=== PATIENT | male | born 1970 | race Caucasian/White ===

== ENCOUNTER 2021-01-31 23:21 | Emergency (ER) | payer OTHER, SELFPAY ==
[2021-01-31 23:25] VITALS: BP 167/85; PULSE 75; RESP 21; TEMP 36.8; O2SAT 96
--- NOTE | 2021-01-31 23:34 | W.ED.GENAD ---
Discharge Plan Disposition Patient Disposition: HOME Condition: Stable Discharge Details Clinical Impression: Back pain Primary Care Provider: Mikik Arita ED Provider: Whitney Mai Home Meds and New Rx's Prescriptions: New prednisone 20 mg tablet 40 mg PO DAILY 4 Days Qty: 8 RF: 0 Continued tizanidine 4 mg Tablet 4 mg PO TID PRNRF: 0 Discharge Instructions Instructions: Oxycodone, Rapid Release (By mouth), Back Pain (ED) Additional Instructions: Imaging and exam are reassuring today. To help manage your pain, please continue with Tylenol and/or ibuprofen. Please take as directed on the bottle. Please use lidocaine patches, these are available [id number]. Continue with the steroids to help with inflammatory source that may be causing your discomfort. Dose was given tonight, next dose will be due in another 24 hours. You may continue with tizanidine as prescribed by your primary care. Aggressive prescribed short course of oxycodone. Please not drive will take this medication and keep in a safe place. Please encourage gentle range of motion and ambulation. Please avoid any heavy lifting. Please encourage water intake. Heat or ice to affected area. Please keep upcoming appointment with primary care. Referral for physical therapy is attached. If you develop weakness, change in bowel or bladder habits, uncontrolled pain or other new/worsening symptoms please seek care urgently once again. Stand Alone Forms: Physical Therapy Referral Referrals: Mikki Arita [Primary Care Provider] - Discharge Data Discharge Date/Time-TO BE ENTERED AT DEPARTURE: 02/01/21 01:49 Medical Decision Making Patient is a pleasant 50-year-old male presenting today with chief complaint of lumbar back pain radiating into left buttock and groin. He reports the pain began approximately 1 week ago after trying to lift a treadmill. States the pain initially was fairly mild but is progressively worsened since then. Was seen by primary care today which time he started on tizanidine. He states he used tizanidine and NSAIDs prior to sleep tonight. However, had minimal rest and awoke with exquisite discomfort. He denies any fevers or chills. Has not Had any falls. No other evidence of trauma. Denies any numbness or tingling. States the pain radiates into the left buttock and now around to the aspect of the groin. On exam, patient appears uncomfortable. He is preferring to stay in a standing position as sitting greatly increases the discomfort. He does have some pain along the midline of the lumbar spine b but no focal pain. He has good rotational movement with slightly discomfort elicited at the extremes of rotation to the left. Good extension but forward flexion greatly exacerbates his pain. He has good range of motion of the left hip with pain only elicited with abduction against resistance. No saddle paresthesias. No rash. No pain with palpation in the groin or under the buttock. At this time, I do not see any evidence to suggest cauda equina. Given the mechanism and progression of pain, primarily concerned for muscular discomfort. Plan for p.o. Valium and Tylenol. I am concerned with the severity of discomfort and do feel that imaging would be warranted at this time. Reevaluated the patient. He reports some numbness down the left anterior calf. His two-point discrimination remains intact. However, his patellar reflexes are greatly diminished on the left side compared to the right. He is able to dorsiflex against resistance without difficulty or weakness. Patient reports that patient reports the pain is down from a 10 out of 10 to 7 out of 10. However, would like further pain medication. We will augment with oxycodone. FINDINGS: Bones/joints: Normal. No acute fracture or dislocation. Soft tissues: Normal. IMPRESSION: Unremarkable CT. FINDINGS: Vertebrae: L1/2, slight loss of disc space height with subtle endplate irregularities and anterior spurring. No significant spinal or foraminal stenosis. L2/3, slight loss of disc space height with superior endplate L3 Schmorl's node and discogenic endplate sclerosis. Small broad-based disc osteophyte complex without significant spinal stenosis or foraminal stenosis L1-L2: No significant disc protrusion. No severe spinal canal stenosis. No significant neural foraminal narrowing. L2-L3: No significant disc protrusion. No severe spinal canal stenosis. No significant neural foraminal narrowing. L3-L4: L3/4, degenerative disc disease with a small diffuse disc osteophyte complex. Mild spinal stenosis results. Moderate right-sided and left-sided foraminal stenosis contributed to by prominent facet joints. L4-L5: L4/5 and demonstrates minimal disc disease without spinal stenosis. Moderate right and moderate to severe left-sided foraminal stenosis contributed to by slightly prominent facet joints. L4/5 demonstrates minimal degenerative disc disease without spinal stenosis. Minimal bilateral foraminal stenosis contributed to by prominent facet joints L5-S1: See Vertebrae finding. Soft tissues: Unremarkable. IMPRESSION: Multilevel lumbar degenerative disc disease and foraminal stenosis as above Discussed these findings with the patient and his . He is feeling improved after the oxycodone and found this more helpful than the Valium. Post void residual was obtained and found to be 78 cc. Patient is ambulating well with no weakness. I do not see any evidence to suggest cauda equina. No evidence to suggest infectious pathology. Advised that the radiation of pain could be associated with sciatica. Also considered groin discomfort after antalgic gait associated with the initial injury over a week ago. We will begin him on steroids. Advised to continue with Tylenol and/or ibuprofen. Encourage water intake. Encourage gentle stretching. Advised he hold off on any lifting. His primary care is also taken him out of work for the week already. Will small course of oxycodone. Safe usage was discussed. I advised close follow-up with primary care, patient does have an appointment later this week. Strict return precautions were discussed. All his questions or concerns were addressed and he is in agreement with this plan. HPI General Mode of arrival: ambulatory. Date/Time Provider Initiated Documentation: 01/31/21 23:34. Limitations to Documentation: no limitations. Information obtained by: patient, family (accompanied by ) and RN notes reviewed. History of Present Illness 50 year old M presents to the emergency department with the chief complaint of left groin and lower back pain, described as severe, with intensity rated at 10. Quality is described as other (tearing), and is localized to the back, pelvis and left. Patient reports no radiation. Patient started experiencing this week(s) (1) and it has been constant. Immobilization improves symptom(s), Movement worsens symptoms . Patient notes no other symptoms.. Patient did receive the following treatments prior to arrival, NSAID and other (tizanidine) Related Data Home Medications Medication Instructions Recorded Confirmed tizanidine 4 mg PO TID PRN 01/31/21 01/31/21 prednisone 40 mg PO DAILY 4 Days #8 tab 02/01/21 Previous Rx's Medication Instructions Recorded prednisone 40 mg PO DAILY 4 Days #8 tab 02/01/21 General Stated Complaint: Orthopedic YESICA: 3 Review of Systems Constitutional Constitutional: Reports as per HPI, Denies chills, Denies fatigue, Denies fever(s), Denies frequent falls and Denies headache(s) ENT Ears, Nose, Mouth, and Throat: Denies headache(s) Cardiovascular Cardiovascular: Denies chest pain, Denies dyspnea and Denies dyspnea on exertion Respiratory Respiratory: Denies cough, Denies dyspnea and Denies dyspnea on exertion Gastrointestinal Gastrointestinal: Denies abdominal pain, Denies change in bowel habits and Denies fecal incontinence Genitourinary Genitourinary: Reports as per HPI, Denies urinary hesitancy and Denies urinary incontinence Musculoskeletal Musculoskeletal: Reports as per HPI, Reports back pain, Denies muscle weakness, Denies numbness, Reports radiating pain into limb and Denies tingling Integumentary/Breasts Skin/Breast: Reports as per HPI and Denies rash Neurologic Neurologic: Reports as per HPI, Denies frequent falls, Denies headache(s), Denies localized weakness, Denies numbness, Denies radicular pain, Denies sensory deficit, Denies tingling and Denies paresthesias Endocrine Endocrine: Denies fatigue [facility] Social History Smoking/Tobacco Use Status: Current every day Tobacco Type: e-cigarettes Smoking risk assessment performed?: Yes Drug use: Daily Substance use type: marijuana Details: vapes tobacco Do you feel safe at home: Yes Do you feel safe in your relationship?: Yes Exam Const General: cooperative, healthy appearing, uncomfortable, no acute distress, well developed and well groomed Nutritional Appearance: well nourished and overweight Orientation: alert and awake Resp Effort & Inspection: normal respiratory effort and able to speak in complete sentences Cardio Rate: regular rate Rhythm: regular rhythm Back/Spine/Pelvis Thoracic/Lumbar Spine: thoracic and lumbar spine normal to inspection, bend over test abnormal, No paraspinal tenderness, thoraco-lumbar ROM limited (with forward flexion), No thoracic spinal tenderness and lumbar spinal tenderness (mild tenderness with no focal point of pain) Pelvis: no pain with anterior-posterior compression, buttock tenderness on the left (indicates left buttock and gluteal fold as area of pain, none with palpation) and no buttock swelling Sacroiliac joints: bilaterally nontender Sacrum: no ecchymosis, no erythema and no swelling Coccyx: no tenderness Skin General skin exam: no rashes or lesions noted Neuro General: patient alert and patient awake Cognition: normal cognition Speech: speech normal Gait: antalgic Motor: muscle tone normal throughout, strength 5/5 throughout, no movement abnormalities noted and no fasciculations Sensory Exam: no sensory deficits noted (no saddle paresthesias) and normal double simultaneous stimulation DTR's: Rt Patellar: 2+ and Lt Patellar: 0 Extrem General: normal to inspection, full ROM, capillary refill normal, no joint enlargement, no pedal edema and no calf tenderness Left lower extremity: normal to inspection, full ROM, normal capillary refill, no joint enlargement, hip/thigh Details: normal to inspection, tenderness Location: of the hip Location: anteriorly (groin) and normal ROM; no swelling, no ecchymosis and no crepitus, knee Details: normal to inspection and lower leg Details: normal to inspection Psych Appearance: grossly normal and well kempt Mental Status: mental status grossly normal Speech and Movement: speech and movement normal Course Vital Signs Vital signs: Vital Signs Temperature 36.8 C 01/31/21 23:25 Pulse 75 01/31/21 23:25 Respiratory Rate 01/31/21 23:25 Blood Pressure 167/85 H 01/31/21 23:25 Pulse Oximetry 96 01/31/21 23:25 Temperature 36.8 C 01/31/21 23:25 Temperature Source Skin 01/31/21 23:25 Pulse 75 01/31/21 23:25 Respiratory Rate 21 01/31/21 23:25 Respiratory Effort Non-Labored 01/31/21 23:29 Blood Pressure 167/85 H 01/31/21 23:25 Pulse Oximetry 96 01/31/21 23:25 Oxygen Delivery Method Room Air 01/31/21 23:25 Oxygen Flow Rate 0 01/31/21 23:25 Pain Level 10 01/31/21 23:25
--- NOTE | 2021-01-31 23:45 | DI.CT_ITS ---
Exam(s) CT LUMBAR SPINE WO CT LOWER EXTREMITY LT WO EXAM: CT LUMBAR SPINE WO CLINICAL HISTORY: injury 1 week ago, LBP TECHNIQUE: COMPARISON: CT CT LOWER EXTREMITY LT WO from 02/01/2021 FINDINGS: CT examination of the lumbosacral spine and CT examination the left hemipelvis and hip are interprete d in conjunction. No soft tissue abnormality seen in the pelvis. Unremarkable appearance of the kid neys and aorta by noncontrast criteria. No adenopathy identified in the region obtained. There are mild degenerative changes lumbosacral spine with disc space loss of height and prominent Sc hmorl's nodes at L2-3. Moderate hypertrophic spurring noted at multiple sites. No evidence of acute fracture or dislocation. At L4-5, on the left, there is question asymmetric appearance of the intervertebral disc, left latera l disc herniation not excluded. Additional evaluation with MR may be obtained if clinically indicated . No left hemipelvis or left hip fracture or dislocation. IMPRESSION: No evidence of acute injury. Degenerative changes of the lumbosacral spine. Left-sided disc herniati on at L4-5 not excluded, MR correlation may be obtained if clinically indicated. RADIATION DOSE DELIVERED: Total DLP RADIATION OPTIMIZATION: All CT scans at this facility use at least one of these dose optimization te chniques: automated exposure control; mA and/or kV adjustment per patient size (includes targeted exa ms where dose is matched to clinical indication); or iterative reconstruction.
[2021-01-31] MEDS: diazePAM 5 MG TAB PO (23:58)
[2021-01-31] MEDS: Acetaminophen 325 MG TAB 650 MG PO (23:58)
[2021-02-01] MEDS: oxyCODONE 5 MG TAB PO (01:05)
--- NOTE | 2021-02-01 01:11 | DI.VRAD_ITS ---
PROCEDURE INFORMATION: Exam: CT Left Lower Extremity Without Contrast, Hip Exam date and time: 02/01/2021 12:23 AM Age: 50 years old Clinical indication: Patient HX: Left hip, pain radiating from glut to groin TECHNIQUE: Imaging protocol: CT of the Left lower extremity without contrast was performed. Exam focused on the hip. Radiation optimization: All CT scans at this facility use at least one of these dose optimization techniques: automated exposure control; mA and/or kV adjustment per patient size (includes targeted exams where dose is matched to clinical indication); or iterative reconstruction. COMPARISON: No relevant prior studies available. FINDINGS: Bones/joints: Normal. No acute fracture or dislocation. Soft tissues: Normal. IMPRESSION: Unremarkable CT. Dictated and Authenticated by: Donald Muñiz MD. Ordering:GABY Olson MD
--- NOTE | 2021-02-01 01:22 | DI.VRAD_ITS ---
PROCEDURE INFORMATION: Exam: CT Lumbar Spine Without Contrast Exam date and time: 01/31/2021 11:55 PM Age: 50 years old Clinical indication: Patient HX: Low back pain, pain radiating from glut to groin TECHNIQUE: Imaging protocol: Computed tomography images of the lumbar spine without contrast. Radiation optimization: All CT scans at this facility use at least one of these dose optimization techniques: automated exposure control; mA and/or kV adjustment per patient size (includes targeted exams where dose is matched to clinical indication); or iterative reconstruction. COMPARISON: No relevant prior studies available. FINDINGS: Vertebrae: L1/2, slight loss of disc space height with subtle endplate irregularities and anterior spurring. No significant spinal or foraminal stenosis. L2/3, slight loss of disc space height with superior endplate L3 Schmorl's node and discogenic endplate sclerosis. Small broad-based disc osteophyte complex without significant spinal stenosis or foraminal stenosis L1-L2: No significant disc protrusion. No severe spinal canal stenosis. No significant neural foraminal narrowing. L2-L3: No significant disc protrusion. No severe spinal canal stenosis. No significant neural foraminal narrowing. L3-L4: L3/4, degenerative disc disease with a small diffuse disc osteophyte complex. Mild spinal stenosis results. Moderate right-sided and left-sided foraminal stenosis contributed to by prominent facet joints. L4-L5: L4/5 and demonstrates minimal disc disease without spinal stenosis. Moderate right and moderate to severe left-sided foraminal stenosis contributed to by slightly prominent facet joints. L4/5 demonstrates minimal degenerative disc disease without spinal stenosis. Minimal bilateral foraminal stenosis contributed to by prominent facet joints L5-S1: See Vertebrae finding. Soft tissues: Unremarkable. IMPRESSION: Multilevel lumbar degenerative disc disease and foraminal stenosis as above Dictated and Authenticated by: Donald Muñiz MD. Ordering:GABY Olson MD
[2021-02-01] MEDS: Lidocaine 5% Patch 1 PATCH TP (01:44)
[2021-02-01] MEDS: predniSONE 20 MG TAB 40 MG PO (01:44)
[2021-02-01 03:44] VITALS: BP 167/85; PULSE 75; RESP 21; TEMP 36.8; O2SAT 96
== END 2021-02-01 01:49 | disposition home or self-care (01) ==
PROVIDERS: Emergency Provider Physician Assistant; PCP Nurse Practitioner Family
DX: M54.5 Low back pain (principal); M25.552 Pain in left hip; X50.0XXA Overexertion from strenuous movement or load, initial encounter
CPT/HCPCS: 99284; 72131; 73700; J7512